=== PATIENT | female | born 1940 | race Caucasian/White ===

== ENCOUNTER 2016-09-02 16:20 | Emergency (ER) | payer MEDICARE ==
[~2016-09-02 16:20] MED LIST: AEROECLIPSE II1 EACH NEB; AMARYL 2MG TABLE2 MG PO; AMIODARONE HCL200 MG PO; ASPIRIN CHEWABL81 MG PO; ATORVASTATIN CA40 MG PO; COREG3.125 MG PO; DUONEB 2.5-0.5M1 AMP NEB; ELIQUIS5 MG PO; LASIX40 MG PO; LEVOTHROID 0.0.15 MG PO; MICRO-K10 MEQ PO; NORCO 7.5-3251 EACH PO; NORVASC 5MG TABL5 MG PO
[2016-09-02 19:21] LABS: CREATININE 1.1 mg/dL (0.5-1.0); POTASSIUM 4.1 mmol/L (3.5-5.1)
[2016-09-02 19:25] LABS: BASOPHIL 0.7 % (0-2); EOSINOPHIL 6.1 % (0-7); HCT 40.7 % (37.0-47.0); HGB 13.4 g/dl (12.5-16.0); LYMPHOCYTE 20.8 % (15-48); MCH 30.5 pg (25.0-31.0); MCHC 32.9 g/dL (32.0-36.0); MCV 92.5 fL (78.0-100.0); MONOCYTE 9.7 % (0-12); MPV 11.2 fL (6.0-9.5); NEUTROPHIL 62.7 % (41-80); PLT 220 K/uL (150-400); RDW 14.7 % (11.5-14.0)
== END 2016-09-02 20:37 | disposition home or self-care (01) ==
LOC: FER 16:20
PROVIDERS: Internal Medicine
DX: M47.22 Other spondylosis with radiculopathy, cervical region (principal); I50.9 Heart failure, unspecified; E11.9 Type 2 diabetes mellitus without complications; E03.9 Hypothyroidism, unspecified; Z87.39 Personal history of other diseases of the musculoskeletal system and connective tissue; Z88.5 Allergy status to narcotic agent; Z88.6 Allergy status to analgesic agent; Z79.899 Other long term (current) drug therapy; Z79.82 Long term (current) use of aspirin; Z95.1 Presence of aortocoronary bypass graft
CPT/HCPCS: 36415; 72040; 73030; 80048; 84484; 85025; 93005; J2175